=== PATIENT | male | born 1970 | race Caucasian/White ===

== ENCOUNTER 2017-06-12 21:18 | Emergency (ER) | payer MEDICAID ==
[2017-06-12] MEDS: ALBUTEROL 0.083% (NEB) 2.5 MG/3 ML AMP NEB (23:02)
[2017-06-12] MEDS: IPRATROPIUM (NEB) 0.5 MG/2.5 ML AMP NEB (23:02)
== END 2017-06-13 00:26 | disposition home or self-care (01) ==
LOC: FTE 06-13 00:26
DX: J20.9 Acute bronchitis, unspecified (principal)
CPT/HCPCS: 71045; 94664; 99283-25

== ENCOUNTER 2017-06-23 07:57 | Emergency (ER) | payer MEDICAID ==
[2017-06-23] MEDS: METHYLPREDNISOLONE 125 MG INJ IM (08:49)
[2017-06-23] MEDS: ALBUTEROL 0.083% (NEB) 2.5 MG/3 ML AMP HHN (09:06)
[2017-06-23] MEDS: IPRATROPIUM (NEB) 0.5 MG/2.5 ML AMP HHN (09:06)
== END 2017-06-23 10:58 | disposition home or self-care (01) ==
LOC: FTE 07:57
DX: J06.9 Acute upper respiratory infection, unspecified (principal)
CPT/HCPCS: 71045; 94644; 96372; 99284-25

== ENCOUNTER 2017-06-28 01:37 | Emergency (ER) | payer MEDICAID ==
[2017-06-28 02:45] LABS: ADD MAN DIFF? NO
[2017-06-28 02:49] LABS: BASOPHIL # 0.1 10^3/ul (0.0-0.1); BASOPHILS % 0.8 % (0.0-2.0); EOSINOPHILS # 1.2 10^3/ul (0.0-0.5); EOSINOPHILS % 11.3 % (0.0-7.0); HEMATOCRIT 46.6 % (42.0-52.0); HEMOGLOBIN 16.4 g/dl (14.0-18.0); LYMPHOCYTES # 3.3 10^3/ul (0.8-2.9); LYMPHOCYTES % 30.6 % (15.0-51.0); MEAN CORPUSCULAR HEMOGLOBIN 31.5 pg (29.0-33.0); MEAN CORPUSCULAR HGB CONC 35.2 g/dl (32.0-37.0); MEAN CORPUSCULAR VOLUME 89.4 fl (82.0-101.0); MEAN PLATELET VOLUME 10.6 fl (7.4-10.4); MONOCYTE # 0.7 10^3/ul (0.3-0.9); MONOCYTES % 6.9 % (0.0-11.0); NEUTROPHIL # 5.3 10^3/ul (1.6-7.5); NEUTROPHILS % 49.8 % (39.0-77.0); PLATELET COUNT 295 10^3/UL (140-415); RED BLOOD COUNT 5.21 10^6/ul (4.70-6.10); RED CELL DISTRIBUTION WIDTH 12.3 % (11.5-14.5)
[2017-06-28 02:49] LABS: WHITE BLOOD COUNT 10.7 10^3/ul (4.8-10.8)
[2017-06-28] MEDS: predniSONE 20 MG TAB PO (02:52)
[2017-06-28] MEDS: ONDANSETRON 4 MG INJ IV (02:52)
[2017-06-28] MEDS: IPRATROPIUM (NEB) 0.5 MG/2.5 ML AMP HHN (03:11)
[2017-06-28] MEDS: ALBUTEROL 0.083% (NEB) 2.5 MG/3 ML AMP HHN ×2 (03:11→05:40)
[2017-06-28 03:19] LABS: ANION GAP 16 (8-16); BLOOD UREA NITROGEN 24 mg/dl (7-20); CALCIUM 9.4 mg/dl (8.4-10.2); CARBON DIOXIDE 24 mmol/L (21-31); CHLORIDE 106 mmol/L (97-110); CREATININE 1.06 mg/dl (0.61-1.24); GLUCOSE 135 mg/dl (70-220); POTASSIUM 3.3 mmol/L (3.5-5.1); SODIUM 143 mmol/L (135-144)
[2017-06-28 03:35] LABS: TROPONIN-I < 0.012 ng/ml (0.00-0.12)
== END 2017-06-28 07:10 | disposition home or self-care (01) ==
LOC: E/R 01:37
DX: J45.901 Unspecified asthma with (acute) exacerbation (principal)
CPT/HCPCS: 36415; 71045; 80048; 84484; 85025; 93005; 94644; 94645; 96374; 99284-25